=== PATIENT | male | born 1985 | race Caucasian/White ===

== ENCOUNTER 2021-05-15 18:09 | Emergency (ER) | payer SELFPAY ==
[~2021-05-15] VITALS: Ht 170 cm; Wt 75.0 kg
[2021-05-15] MEDS ORDERED: CEPHALEXIN 250 MG (KEFLEX) CAP PO SCH (18:45)
[2021-05-15] MEDS ORDERED: ACHD5005 PO (18:45)
[2021-05-15] MEDS ORDERED: TETANUS,DIPTH,PERTUSS P/F (BOOSTRIX) 0.5 ML VIAL IM ONE (18:45)
[2021-05-15] MEDS ORDERED: HYDROcodone/APAP 5 MG/325 MG (LORTAB) TAB PO ONE (18:45)
[2021-05-15] MEDS ORDERED: CEPH500T PO (18:45)
--- NOTE | 2021-05-15 18:45 | ED Upper Extremity ---
General Chief Complaint: Laceration Stated Complaint: FINGER INJURY Nursing Triage Note: PT AMB TO [facility] 6 WITH C/O L POINTER FINGER LAC YESTERDAY ON SHEET METAL Source: patient Exam Limitations: no limitations (KENTRELL SANTO APRN) History of Present Illness Date Seen by Provider: May 15, 2021 Time Seen by Provider: 18:40 Initial Comments To ER by private vehicle with reports of left pointer finger laceration that occurred yesterday. Tetanus is not up-to-date within the last 5 years. Had difficulty getting this to stop bleeding so he wrapped this in multiple layers of tape and Band-Aid. Presents due to significantly worsening pain to the left pointer finger. Onset: just prior to arrival Severity: moderate Pain/Injury Location: left 2nd finger Method of Injury: fell Modifying Factors: Worse With Movement (KENTRELL SANTO APRN) Allergies and Home Medications Allergies Coded Allergies: No Known Drug Allergies (Unverified , 05/15/21) Patient Home Medication List Home Medication List Reviewed: Yes (KENTRELL SANTO APRN) Cephalexin (Cephalexin) 500 Mg Tablet, 500 MG PO TID Prescribed by: KENTRELL SANTO on 05/15/211844 Hydrocodone/Acetaminophen (Hydrocodone-Acetamin 5-325 mg) 1 Each Tablet, 1 TAB PO Q4H PRN for PAIN-MODERATE (5-7) Prescribed by: KENTRELL SANTO on 05/15/211844 Review of Systems Constitutional: see HPI EENTM: see HPI Respiratory: no symptoms reported Cardiovascular: no symptoms reported Genitourinary: no symptoms reported Musculoskeletal: no symptoms reported Skin: no symptoms reported Psychiatric/Neurological: No Symptoms Reported (KENTRELL SANTO APRN) Past Yqiguva-Fgembv-Ldgtkf Hx Patient Social History Tobacco Use?: Yes Tobacco type used: Cigarettes Smoking Status: Current Everyday Smoker Use of E-Cig and/or Vaping dev: No Substance use?: No Alcohol Use?: No Pt feels they are or have been: No (KENTRELL SANTO APRN) Physical Exam Vital Signs Vital Signs - First Documented 05/15/21 18:18 Temp 37.0 Pulse 95 Resp 18 B/P (MAP) 134/100 (111) (MAYCOL MOLINA MD) Vital Signs Capillary Refill : (KENTRELL SANTO APRN) Height, Weight, BMI Height: '" Weight: lbs. oz. kg; 25.00 BMI Method: General Appearance: WD/WN, no apparent distress HEENT: PERRL/EOMI, normal ENT inspection Neck: non-tender, full range of motion Respiratory: no respiratory distress, no accessory muscle use Elbow/Forearm: normal inspection, non-tender Wrist: Yes normal inspection, Yes non-tender Hand: normal inspection, non-tender, Left (After removing multiple layers of tape and Band-Aid from left pointer finger there is a small nonbleeding laceration less than 1 cm to the distal pad of the fingertip, perhaps this went under the fingernail. No foreign bodies are seen.) Neurologic/Psychiatric: alert, normal mood/affect, oriented x 3 Skin: normal color, warm/dry (KENTRELL SANTO APRN) Progress/Results/Core Measures Results/Orders Medications Given in ED Current Medications Medications Dose Ordered Sig/Cliff Route Start Time Stop Time Status Last Admin Dose Admin Acetaminophen/ Hydrocodone Bitart 1 ea ONCE ONCE PO 05/15/21 18:45 05/15/21 18:46 DC 05/15/21 19:18 1 EA Diphtheria/ Tetanus/Acell Pertussis 0.5 ml ONCE ONCE IM 05/15/21 18:45 05/15/21 18:46 DC 05/15/21 19:19 0.5 ML (MAYCOL MOLINA MD) Vital Signs/I&O 05/15/21 05/15/21 18:18 19:27 Temp 37.0 37.0 Pulse 95 90 Resp 18 18 B/P (MAP) 134/100 (111) 130/90 (MAYCOL MOLINA MD) Blood Pressure Mean: 111 Departure Communication (Admissions) hand x ray unremarkable (KENTRELL SANTO APRN) Communication (PCP) (KENTRELL SANTO APRN) Impression Primary Impression: Finger laceration Disposition: 01 HOME, SELF-CARE Condition: Stable Departure-Patient Inst. Decision time for Depature: 18:43 (KENTRELL SANTO APRN) Patient Instructions: Wound Care Add. Discharge Instructions: 1. Return to ER for any concerns. Wash this area gently with soap and water. Antibiotic and pain medication as directed. All discharge instructions reviewed with patient and/or family. Voiced understanding. Scripts Hydrocodone/Acetaminophen (Hydrocodone-Acetamin 5-325 mg) 1 Each Tablet 1 TAB PO Q4H PRN for PAIN-MODERATE (5-7), #10 TAB Prov: KENTRELL SANTO APRN 05/15/21 Cephalexin (Cephalexin) 500 Mg Tablet 500 MG PO TID, #14 TAB Prov: KENTERLL SANTO [employer]PER[employer] 05/15/21 ATTENDING PHYSICIAN NOTE: I was physically present as attending physician in the emergency department during the care of this patient, but I was not directly involved in the decision making or delivery of care for this patient. (MAYCOL MOLINA MD) KENTRELL SANTO APRN May 15, 2021 18:45 MAYCOL MOLINA MD May 15, 2021 20:54
--- NOTE | 2021-05-15 19:06 | Diagnostic Imaging Report ---
HISTORY: Pain in the left index finger. Metal in the 2nd finger COMPARISON: None TECHNIQUE: 3 views of the left hand FINDINGS: No acute fracture or dislocation is seen in the left hand. Alignment appears normal. Joint spaces are preserved. No radiopaque foreign body is seen. IMPRESSION: 1. No acute osseous abnormality or metal foreign body is seen in the left hand. Dictated by: Dictated on workstation # [id number]
[2021-05-15 19:27] VITALS: BP 130/90
== END 2021-05-15 19:28 | disposition home or self-care (01) ==
LOC: ER 18:12
DX: S61.211A Laceration without foreign body of left index finger without damage to nail, initial encounter (principal); F17.210 Nicotine dependence, cigarettes, uncomplicated; Z23 Encounter for immunization; W26.8XXA Contact with other sharp object(s), not elsewhere classified, initial encounter
CPT/HCPCS: 73130; 90715